=== PATIENT | female | born 1960 | race African-American/Black ===

== ENCOUNTER 2023-05-10 08:54 | Outpatient (CLI) | payer BC ==
[2023-05-10] MEDS ORDERED: Magnevist 469MG/ML 20 ML VIAL ONE (12:36)
== END 2023-05-10 08:55 | disposition home or self-care (01) ==
LOC: CSHMRI 08:54
PROVIDERS: ATTEND Internal Medicine Gastroenterology
DX: R79.89 Other specified abnormal findings of blood chemistry (principal); R10.11 Right upper quadrant pain; K82.8 Other specified diseases of gallbladder; K83.8 Other specified diseases of biliary tract; K86.9 Disease of pancreas, unspecified
CPT/HCPCS: 74183

== ENCOUNTER 2023-08-08 08:45 | Outpatient (CLI) | payer BC | END 2023-08-08 08:46 | disposition home or self-care (01) | LOC: CSHMRI 08:45 | PROVIDERS: ATTEND Internal Medicine Gastroenterology | DX: R10.11 Right upper quadrant pain (principal); K83.8 Other specified diseases of biliary tract | CPT/HCPCS: 74183 ==

== ENCOUNTER 2024-07-24 08:48 | Outpatient (CLI) | payer BC | END 2024-07-24 08:49 | disposition home or self-care (01) | LOC: CSHMRI 08:48 | PROVIDERS: ATTEND Internal Medicine Gastroenterology | DX: K83.8 Other specified diseases of biliary tract (principal); R79.89 Other specified abnormal findings of blood chemistry; Q45.3 Other congenital malformations of pancreas and pancreatic duct | CPT/HCPCS: 74183; 76376; 82565 ==

== ENCOUNTER 2024-10-08 11:49 | Outpatient (CLI) | payer BC | END 2024-10-08 11:50 | disposition home or self-care (01) | LOC: CSHMAMMO 11:49 | PROVIDERS: ATTEND Internal Medicine | DX: Z12.31 Encounter for screening mammogram for malignant neoplasm of breast (principal); Z85.3 Personal history of malignant neoplasm of breast; Z91.89 Other specified personal risk factors, not elsewhere classified; Z98.890 Other specified postprocedural states | CPT/HCPCS: 77063; 77067 ==